=== PATIENT | male | born 1990 | race Caucasian/White ===

== ENCOUNTER 2019-06-20 13:37 | Emergency (ER) | payer MEDICAID ==
--- NOTE | 2019-06-20 16:13 | EDM.PDOC ---
ED HPI GENERAL MEDICAL PROBLEM - General Chief Complaint: ENT Problem Stated Complaint: DENTAL PAIN Time Seen by Provider: 06/20/19 16:13 - History of Present Illness INITIAL COMMENTS - FREE TEXT/NARRATIVE: Patient left without being seen. Right Upper Tooth/Teeth Pain Score (Numeric/FACES): 7 - Related Data Allergies Allergy/AdvReac Type Severity Reaction Status Date / Time banana Allergy Anaphylactic Verified 06/20/19 14:51 Shock egg Allergy Rash Verified 06/20/19 14:51 Penicillins Allergy Rash Verified 06/20/19 14:51 shellfish derived Allergy Anaphylactic Verified 06/20/19 14:51 Shock Home Meds: Home Meds Rivaroxaban [Xarelto] 20 mg PO DAILY 06/20/19 [History] Past Medical History Respiratory History: Reports: Asthma, PE Psychiatric History: Reports: Schizophrenia Oncologic (Cancer) History: Reports: Other (See Below) Other Oncologic History: [facility] Social & Family History - Tobacco Use Smoking Status *Q: Current Every Day Smoker Years of Tobacco use: 10 Packs/Tins Daily: 0.5 - Recreational Drug Use Recreational Drug Use: No ED ROS ENT - Review of Systems Review Of Systems: Unable To Obtain ED EXAM, ENT - Physical Exam Exam: Not Obtained Course - Vital Signs Last Recorded V/S: Last Vital Signs Temp 98.6 F 06/20/19 14:46 Pulse 94 06/20/19 14:46 Resp 16 06/20/19 14:46 BP 136/78 06/20/19 14:46 Pulse Ox 94 L 06/20/19 14:46 - Re-Assessments/Exams Free Text/Narrative Re-Assessment/Exam: Patient left without being evaluated. Departure - Departure Time of Disposition: 16:16 Disposition: Left Without Being Seen 07 Condition: Undetermined Clinical Impression: Pain, dental - Discharge Information Referrals: PCP,Unknown [Primary Care Provider] - Forms: ED Department Discharge
== END 2019-06-20 16:16 | disposition left against medical advice (07) ==
LOC: JD.ED 13:37
DX: K08.89 Other specified disorders of teeth and supporting structures (principal); Z53.21 Procedure and treatment not carried out due to patient leaving prior to being seen by health care provider